=== PATIENT | female | born 1990 | race African-American/Black ===

== ENCOUNTER 2017-03-10 00:59 | Emergency (ER) | payer BC, MEDICAID ==
[2017-03-10 02:32] LABS: CALCIUM 8.6 mg/dL (8.5-10.1); CARBON DIOXIDE 25.9 mmol/L (21-32); CHLORIDE SERUM 104 mmol/L (98-107); CREATININE SERUM 0.8 mg/dL (0.6-1.0); GFR1 > 60 mL/min; GLUCOSE SERUM 110 mg/dL (74-106); POTASSIUM SERUM 3.6 mmol/L (3.5-5.1); SODIUM SERUM 139 mmol/L (136-145)
[2017-03-10 02:41] LABS: ALBUMIN 3.7 g/dL (3.4-5.0); ALKALINE PHOSPHATASE 93 U/L (46-116); ALT/SGPT 17 U/L (14-59); AST/SGOT 19 U/L (15-37); BILIRUBIN TOTAL 0.35 mg/dL (0.20-1.00); TOTAL PROTEIN, SERUM 7.7 g/dL (6.4-8.2)
[2017-03-10 03:05] LABS: BASOPHIL % 0.5 % (0-2); PLATELET COUNT 256 x10^3mcL (130-400); RED CELL DISTRIBUTION WIDTH 14.2 % (11.5-14.5)
[2017-03-10 03:42] VITALS: BP 129/72
== END 2017-03-10 03:42 | disposition home or self-care (01) ==
LOC: ED 00:59
PROVIDERS: Emergency Medicine
DX: K64.9 Unspecified hemorrhoids (principal); K92.2 Gastrointestinal hemorrhage, unspecified; Z90.89 Acquired absence of other organs

== ENCOUNTER 2017-03-18 18:42 | Emergency (ER) | payer BC, MEDICAID ==
[~2017-03-18] VITALS: Ht 165.1 cm; Wt 103.4 kg
[2017-03-18 20:31] LABS: PLATELET COUNT 211 x10^3mcL (130-400); RED CELL DISTRIBUTION WIDTH 14.4 % (11.5-14.5)
[2017-03-18 20:41] LABS: CALCIUM 8.2 mg/dL (8.5-10.1); CARBON DIOXIDE 32.4 mmol/L (21-32); CHLORIDE SERUM 101 mmol/L (98-107); CREATININE SERUM 0.9 mg/dL (0.6-1.0); GFR1 > 60 mL/min; GLUCOSE SERUM 88 mg/dL (74-106); POTASSIUM SERUM 3.8 mmol/L (3.5-5.1); SODIUM SERUM 142 mmol/L (136-145)
[2017-03-18 20:42] LABS: ALKALINE PHOSPHATASE 96 U/L (46-116); ALT/SGPT 10 U/L (14-59); AST/SGOT 12 U/L (15-37); BILIRUBIN TOTAL 0.2 mg/dL (0.20-1.00); TOTAL PROTEIN, SERUM 7.1 g/dL (6.4-8.2)
[2017-03-18 20:50] LABS: ALBUMIN 3.2 g/dL (3.4-5.0)
[2017-03-18 21:22] VITALS: BP 112/78
== END 2017-03-18 21:22 | disposition home or self-care (01) ==
LOC: ED 18:42
PROVIDERS: Emergency Medicine
DX: K64.9 Unspecified hemorrhoids (principal); K92.2 Gastrointestinal hemorrhage, unspecified; R59.0 Localized enlarged lymph nodes

== ENCOUNTER 2018-09-09 07:02 | Emergency (ER) | payer MEDICAID ==
[~2018-09-09] VITALS: Ht 157.5 cm; Wt 104.3 kg
[2018-09-09 07:13] VITALS: BP 128/55; Ht 157.5 cm; Wt 104.3 kg
== END 2018-09-09 09:07 | disposition home or self-care (01) ==
LOC: ED 07:02
DX: S63.502A Unspecified sprain of left wrist, initial encounter (principal); S93.602A Unspecified sprain of left foot, initial encounter; W18.30XA Fall on same level, unspecified, initial encounter; Y93.01 Activity, walking, marching and hiking; Y92.89 Other specified places as the place of occurrence of the external cause; Y99.8 Other external cause status
CPT/HCPCS: Q0092

== ENCOUNTER 2019-01-28 18:00 | Emergency (ER) | payer MEDICAID ==
[~2019-01-28] VITALS: Ht 157.5 cm; Wt 89.8 kg
[2019-01-28 18:04] VITALS: BP 134/75; Ht 157.5 cm; Wt 89.8 kg
== END 2019-01-28 20:34 | disposition home or self-care (01) ==
LOC: ED 18:00
DX: J06.9 Acute upper respiratory infection, unspecified (principal); K64.5 Perianal venous thrombosis; Z90.89 Acquired absence of other organs; Z90.49 Acquired absence of other specified parts of digestive tract